=== PATIENT | male | born 1980 | race Caucasian/White ===

== ENCOUNTER 2017-08-03 15:45 | Emergency (ER) | payer OTHER ==
[~2017-08-03] VITALS: Ht 180.3 cm; Wt 100.0 kg
[2017-08-03 15:59] VITALS: BP 159/76; PULSE 72; RESP 19; TEMP 98.6; O2SAT 98
[2017-08-03] MEDS ORDERED: NAPR250T4 PO (16:15)
[2017-08-03] MEDS ORDERED: VENTAER INH (16:15)
[2017-08-03] MEDS ORDERED: HYDR-755 PO (16:15)
[2017-08-03] MEDS ORDERED: MELO7.5T27 PO (16:15)
[2017-08-03] MEDS ORDERED: PERM5CRE TOPICAL (16:34)
--- NOTE | 2017-08-03 16:34 | PD ---
HPI Chief Complaint: Skin Problem Time Seen by Provider: 16:14 Travel History International Travel<30 days: No Contact w/Intl Traveler<30days: No Traveled to known affect area: No History of Present Illness HPI Patient 36-year-old male recently came to our area from [place] he is visiting town, he complains of rash on his bilateral upper extremities and abdomen which is extremely pruritic, he states it first started in his scalp however. No other sick contacts, no fevers no nausea no vomiting no diarrhea no constipation. Denies any exposure to scabies or bug bites or bugs. States symptoms are moderate, location as above, duration is starting yesterday, gradually worsening PFSH Past Medical History Asthma: Yes Anxiety: Yes (PTSD) Respiratory: Yes (ASTHMA) Influenza Vaccination: No Past Surgical History Other Surgery: Yes (sinus surgery) Social History Alcohol Use: Yes (occasionally) Tobacco Use: No Substance Use: No Allergies-Medications (Allergen,Severity, Reaction): Coded Allergies: No Known Allergies (Unverified , 08/03/17) Reported Meds & Prescriptions Reported Meds & Active Scripts Active Proair Hfa 8.5 GM Inh (Albuterol Sulfate) 90 Mcg/Act Aer 2 Puff INH Q4-6H PRN 108 mcg/actuation Permethrin Topical 5% (Permethrin) 5% Cream 1 Applic TOPICAL ONCE Apply head to toe, leave on for 16 hours then shower off. Repeat in one week as necessary. Reported Hydroxyzine HCl 10 Mg Tab 10 Mg PO TID PRN Ventolin Hfa 18 GM Inh (Albuterol Sulfate) 90 Mcg/Act Aer 2 Puff INH Q4-6H PRN Naproxen 250 Mg Tab 250 Mg PO BID Meloxicam 7.5 Mg Tab 7.5 Mg PO DAILY Review of Systems Except as stated in HPI: all other systems reviewed are Neg Physical Exam Narrative GENERAL: Well-nourished, well-developed patient. SKIN: Focused skin assessment warm/dry. Patient has some scattered pruritic appearing slightly raised lesions which are most consistent with scabies, there is some linear tracking particularly on the right forearm, there is 1 or 2 that are on the webspaces There is one on the palmar aspect of his right palm. There is also some of these lesions on the scalp area particularly on the right side. No surrounding erythema or abscess. HEAD: Normocephalic. Atraumatic EYES: No scleral icterus. No injection or drainage. NECK: Supple, trachea midline. No JVD or lymphadenopathy. CARDIOVASCULAR: Regular rate and rhythm without murmurs, gallops, or rubs. RESPIRATORY: Breath sounds equal bilaterally. No accessory muscle use. GASTROINTESTINAL: Abdomen soft, non-tender, nondistended. MUSCULOSKELETAL: No cyanosis, or edema. BACK: Nontender without obvious deformity. No CVA tenderness. Data Data Last Documented VS Vital Signs Date Time Temp Pulse Resp B/P (MAP) Pulse Ox O2 Delivery O2 Flow Rate FiO2 08/03/17 15:59 98.6 72 19 159/76 (103) 98 Orders Orders Ed Discharge Order (08/03/17 16:34) MDM Medical Decision Making Medical Screen Exam Complete: Yes Emergency Medical Condition: Yes Differential Diagnosis Scabies, bug bite, acute bacterial illness highly unlikely. Narrative Course Patient room to the emergency department, symptoms and signs highly consistent with scabies, discussed symptomatic management need follow-up with a primary care physician. Discussed if similar lesions should occur on family members they should be evaluated and treated as well. He is stable for the Diagnosis Primary Impression: Scabies Med/Other Pt SpecificInfo: Prescription(s) given Scripts Albuterol 8.5 GM Inh (Proair Hfa 8.5 GM Inh) 90 Mcg/Act Aer 2 PUFF INH Q4-6H Y for SHORTNESS OF BREATH, #1 INHALER 0 Refills 108 mcg/actuation Prov: Pillo Sifuentes MD 08/03/17 Permethrin Topical 5% (Permethrin Topical 5%) 5% Cream 1 APPLIC TOPICAL ONCE for Scabies, #1 TUBE 0 Refills Apply head to toe, leave on for 16 hours then shower off. Repeat in one week as necessary. Prov: Pillo Sifuentes MD 08/03/17 Disposition: 01 DISCHARGE HOME Condition: Stable Pillo Sifuentes MD August 03, 2017 16:34
[2017-08-03] MEDS ORDERED: ALBUAER3 INH (16:58)
== END 2017-08-03 17:03 | disposition home or self-care (01) ==
LOC: NEPD 15:45
DX: B86 Scabies (principal); J45.909 Unspecified asthma, uncomplicated
CPT/HCPCS: 99283